=== PATIENT | male | born 1950 | race Caucasian/White ===

== ENCOUNTER 2021-12-01 04:52 | Inpatient (IN) | payer OTHER ==
[2021-11-29 17:26] VITALS: BMI 23.6
[2021-12-01] MEDS ORDERED: CEFAZOLIN 2 GM in DEXTROSE 5%-WATER - 100 ML IVPB ONE (07:00)
[2021-12-01] MEDS ORDERED: PHENYLEPHRINE HCL 10 MG/1 ML SINGLE DOSE VIAL ONE (07:15)
[2021-12-01] MEDS ORDERED: DEXAMETHASONE SOD PHOSPHATE 4 MG/1 ML VIAL ONE (07:15)
[2021-12-01] MEDS ORDERED: LIDOCAINE HCL 2% 100 MG/5 ML DISP.SYRIN ONE (07:15)
[2021-12-01] MEDS ORDERED: MIDAZOLAM HCL 2 MG/2 ML SINGLE DOSE VIAL ONE (07:16)
[2021-12-01] MEDS ORDERED: SUCCINYLCHOLINE CHLORIDE 200 MG/10 ML SYRINGE ONE (07:16)
[2021-12-01] MEDS ORDERED: PROPOFOL 20 ML ONE (07:16)
[2021-12-01] MEDS ORDERED: POVIDONE-IODINE OINTMENT 10% - 28.4 GM TUBE ONE (07:17)
[2021-12-01] MEDS ORDERED: HEPARIN NA (PORCINE) 5,000 UNITS/ML 1ML VIAL ONE ×2 (07:17→09:14)
[2021-12-01] MEDS ORDERED: PAPAVERINE HCL 30 MG/1 ML 10 ML VIAL NR ONE (07:17)
[2021-12-01] MEDS ORDERED: ROCURONIUM BROMIDE 100 MG/10 ML VIAL ONE (07:26)
[2021-12-01] MEDS ORDERED: ceFAZolin SODIUM 1 GM VIAL IVPB ONE (08:05)
[2021-12-01] MEDS ORDERED: DESFLURANE GAS 240 ML BOTTLE IH ONE (08:16)
[2021-12-01] MEDS ORDERED: GLYCOPYRROLATE 0.2 MG/1 ML VIAL ONE ×2 (08:17→11:22)
[2021-12-01] MEDS ORDERED: HEPARIN NA (PORCINE) 5,000 UNITS/ML 1ML VIAL SQ ONE (08:26)
[2021-12-01] MEDS ORDERED: hydrALAZINE HCL 20 MG/ML VIAL ONE (09:00)
[2021-12-01] MEDS ORDERED: HYDROmorphone HCl 2 MG/ML VIAL ONE (09:37)
[2021-12-01] MEDS ORDERED: PROTAMINE SULFATE 50 MG/5 ML VIAL ONE (10:53)
[2021-12-01] MEDS ORDERED: NEOSTIGMINE METHYLSULFATE 0.5 MG/ML - 10 ML MDV ONE (11:22)
[2021-12-01] MEDS ORDERED: LACTATED RINGERS SOLUTION 1,000 ML IV SCH (11:45)
[2021-12-01] MEDS ORDERED: oxyCODONE HCL 5 MG TABLET PO PRN (11:46)
[2021-12-01] MEDS ORDERED: morphine SULFATE 4 MG/ML VIAL IVPUSH PRN (11:47)
[2021-12-01] MEDS: ACETAMINOPHEN 1000 MG/100 ML BAG IVPB ONE ×2 (12:05→12:10)
[2021-12-01 12:12] LABS: BASO % 0.6 % (0-2.0); EOS % 0.4 % (0-4.5); HEMATOCRIT 35.4 % (35.4-49); HEMOGLOBIN 12.1 GM/dL (11.7-16.9); LYMPH % 10.9 % (8-40); MCH 37.2 pg (25.7-33.7); MCHC 34.3 g/dl (32.0-35.9); MEAN CELL VOLUME 108.5 fl (80-96); MEAN PLT VOLUME 7.1 fl (7.5-11.1); MONO % 1.9 % (3.8-10.2); NEUT % 86.2 % (42.8-82.8); PLATELET COUNT 307 10^3/uL (134-434); RBC 3.26 M/mm3 (4.00-5.60); RDW 12.6 % (11.9-15.9); WHITE BLOOD COUNT 5.4 K/mm3 (4.0-10.0)
[2021-12-01 12:31] LABS: ANISOCYTOSIS 1+; MACROCYTOSIS 1+
[2021-12-01 12:33] LABS: BLOOD UREA NITROGEN 15.1 mg/dL (7-18); CALCIUM 7.9 mg/dL (8.5-10.1)
[2021-12-01 12:37] LABS: CREATININE 1.3 mg/dL (0.55-1.3)
[2021-12-01] MEDS ORDERED: ARTIFICIAL TEARS (POLYVINYL ALCOHOL) OPTH DROPS OU PRN (15:20)
[2021-12-01] MEDS ORDERED: ceFAZolin SODIUM 1 GM VIAL ONE (16:22)
[2021-12-01] MEDS ORDERED: DEXTROSE 5%-WATER 100 ML IVPB ONE (16:22)
[2021-12-01] MEDS: CEFAZOLIN 1 GM in DEXTROSE 5%-WATER 100 ML IVPB SCH (16:40)
[2021-12-01] MEDS ORDERED: ONDANSETRON 4 MG/2 ML VIAL IVPUSH PRN (17:45)
[2021-12-01] MEDS ORDERED: FAMOTIDINE 20 MG/50 ML IVPB 20 MG/50 ML MG IVPB ONE (18:16)
[2021-12-01] MEDS: ACETAMINOPHEN 500 MG TABLET (FP) PO SCH (20:10)
[2021-12-01] MEDS: DICLOFENAC SODIUM 0.1% OPHTHALMIC 2.5ML BOTTLE OD SCH ×2 (20:11→21:45)
[2021-12-01] MEDS ORDERED: MUPIROCIN 2% TOPICAL OINTMENT FOR DECOLONIZATION NS SCH (22:00)
[2021-12-01] MEDS ORDERED: CHLORHEXIDINE GLUCONATE 4% CLEANSER FOR DECOLONIZATION TP SCH ×2 (22:00)
[2021-12-01] MEDS ORDERED: HEPARIN NA (PORCINE) 5,000 UNITS/ML 1ML VIAL SQ SCH (22:00)
[2021-12-01] MEDS: MUPIROCIN 2% TOPICAL OINTMENT FOR DECOLONIZATION NS SCH (22:41)
[2021-12-02] MEDS ORDERED: ceFAZolin SODIUM 1 GM VIAL ONE ×2 (00:44→10:04)
[2021-12-02] MEDS ORDERED: DEXTROSE 5%-WATER 100 ML IVPB ONE ×2 (00:45→10:04)
[2021-12-02] MEDS: CEFAZOLIN 1 GM in DEXTROSE 5%-WATER 100 ML IVPB SCH ×2 (00:48→10:12)
[2021-12-02] MEDS: ACETAMINOPHEN 500 MG TABLET (FP) PO SCH ×3 (04:27→22:11)
[2021-12-02 07:06] LABS: BASO % 0.3 % (0-2.0); EOS % 0.2 % (0-4.5); HEMATOCRIT 32.6 % (35.4-49); HEMOGLOBIN 11.3 GM/dL (11.7-16.9); LYMPH % 11.3 % (8-40); MCH 37.3 pg (25.7-33.7); MCHC 34.8 g/dl (32.0-35.9); MEAN CELL VOLUME 107.3 fl (80-96); MEAN PLT VOLUME 7.4 fl (7.5-11.1); MONO % 10.7 % (3.8-10.2); NEUT % 77.5 % (42.8-82.8); PLATELET COUNT 341 10^3/uL (134-434); RBC 3.04 M/mm3 (4.00-5.60); RDW 12.7 % (11.9-15.9); WHITE BLOOD COUNT 5.2 K/mm3 (4.0-10.0)
[2021-12-02 07:26] LABS: ALBUMIN 3.1 g/dl (3.4-5.0); BLOOD UREA NITROGEN 14.8 mg/dL (7-18); MAGNESIUM 1.9 mg/dL (1.8-2.4)
[2021-12-02 07:29] LABS: CREATININE 1.2 mg/dL (0.55-1.3); PHOSPHOROUS 3.1 mg/dL (2.5-4.9)
[2021-12-02 07:30] LABS: TOT PROT 5.7 g/dl (6.4-8.2)
[2021-12-02 07:31] LABS: BILIRUBIN,TOTAL 0.5 mg/dL (0.2-1)
[2021-12-02] MEDS ORDERED: FOLIC ACID 1 MG TABLET (FP) PO SCH (10:00)
[2021-12-02] MEDS ORDERED: amLODIPine BESYLATE 5 MG TABLET (FP) PO SCH (10:00)
[2021-12-02] MEDS ORDERED: LISINOPRIL 10 MG TABLET PO SCH (10:00)
[2021-12-02] MEDS ORDERED: METOPROLOL TARTRATE 25 MG TABLET (FP) PO SCH (10:00)
[2021-12-02] MEDS ORDERED: RIVAROXABAN 2.5 MG TABLET PO SCH (10:00)
[2021-12-02] MEDS ORDERED: HYDROXYUREA 500 MG CAPSULE PO SCH (10:00)
[2021-12-02] MEDS ORDERED: ASPIRIN COATED 81 MG TABLET.EC PO SCH ×2 (10:00)
[2021-12-02] MEDS: MUPIROCIN 2% TOPICAL OINTMENT FOR DECOLONIZATION NS SCH (10:12)
[2021-12-02] MEDS: DICLOFENAC SODIUM 0.1% OPHTHALMIC 2.5ML BOTTLE OD SCH ×4 (10:14→22:12)
[2021-12-02] MEDS ORDERED: ARTIFICIAL TEARS (POLYVINYL ALCOHOL) OPTH DROPS OU PRN (13:51)
[2021-12-02] MEDS ORDERED: oxyCODONE HCL 5 MG TABLET PO PRN (13:51)
[2021-12-02] MEDS ORDERED: CEFAZOLIN 2 GM in DEXTROSE 5%-WATER - 100 ML IVPB ONE (13:51)
[2021-12-02] MEDS ORDERED: ONDANSETRON 4 MG/2 ML VIAL IVPUSH PRN (13:51)
[2021-12-02] MEDS ORDERED: SENNOSIDES/DOCUSATE COMBO (SENNA PLUS) TABLET (UD) PO SCH ×2 (22:00)
[2021-12-02] MEDS ORDERED: ATORVASTATIN CA 40 MG TABLET (FP) PO SCH ×2 (22:00)
[2021-12-02] MEDS: RIVAROXABAN 2.5 MG TABLET PO SCH (23:02)
[2021-12-03] MEDS: ACETAMINOPHEN 500 MG TABLET (FP) PO SCH ×2 (03:24→12:02)
[2021-12-03 09:38] LABS: CALCIUM 9.1 mg/dL (8.5-10.1)
[2021-12-03 09:39] LABS: ALBUMIN 3.7 g/dl (3.4-5.0); BLOOD UREA NITROGEN 16.6 mg/dL (7-18)
[2021-12-03 09:42] LABS: CREATININE 1.2 mg/dL (0.55-1.3)
[2021-12-03 09:43] LABS: TOT PROT 6.5 g/dl (6.4-8.2)
[2021-12-03] MEDS: RIVAROXABAN 2.5 MG TABLET PO SCH (09:55)
[2021-12-03] MEDS ORDERED: HYDROXYUREA 500 MG CAPSULE PO SCH (10:00)
[2021-12-03] MEDS ORDERED: LISINOPRIL 10 MG TABLET PO SCH (10:00)
[2021-12-03] MEDS ORDERED: ASPIRIN COATED 81 MG TABLET.EC PO SCH (10:00)
[2021-12-03] MEDS ORDERED: METOPROLOL TARTRATE 25 MG TABLET (FP) PO SCH (10:00)
[2021-12-03] MEDS ORDERED: amLODIPine BESYLATE 5 MG TABLET (FP) PO SCH (10:00)
[2021-12-03] MEDS ORDERED: FOLIC ACID 1 MG TABLET (FP) PO SCH (10:00)
[2021-12-03] MEDS: DICLOFENAC SODIUM 0.1% OPHTHALMIC 2.5ML BOTTLE OD SCH (10:04)
[2021-12-03 10:35] VITALS: BP 124/65; PULSE 88; TEMP 98.2
== END 2021-12-03 13:44 | disposition home or self-care (01) | DRG 254 ==
LOC: J2C 04:52 → JICU 13:30 → J8W 12-02 12:44
PROVIDERS: ADMIT Surgery; ATTEND Surgery
PROC: 041K0JM Bypass Right Femoral Artery to Peroneal Artery with Synthetic Substitute, Open Approach (ICD-10-PCS; 2021-12-01)
PROC: 04CM0ZZ Extirpation of Matter from Right Popliteal Artery, Open Approach (ICD-10-PCS; 2021-12-01)
PROC: 04CK0ZZ Extirpation of Matter from Right Femoral Artery, Open Approach (ICD-10-PCS; principal; 2021-12-01 08:00)
DX: I70.221 Atherosclerosis of native arteries of extremities with rest pain, right leg (principal); I10 Essential (primary) hypertension; E78.5 Hyperlipidemia, unspecified; D46.9 Myelodysplastic syndrome, unspecified; K21.9 Gastro-esophageal reflux disease without esophagitis
CPT/HCPCS: 36415; 80048; 80053; 83735; 84100; 85025; 85027; 86850; 86900; 86901; 88304-TC; 94760; 97116-GP; 97161-GP; J1644; J8999